=== PATIENT | male | born 1990 | race Caucasian/White ===

== ENCOUNTER 2024-07-09 16:38 | Emergency (ER) | payer OTHER, SELFPAY ==
[2024-07-09 16:49] VITALS: BP 127/93; PULSE 79; RESP 16; TEMP 36.6; O2SAT 97; BMI 29.0
--- NOTE | 2024-07-09 17:00 | DI.CT.S_ITS ---
PROCEDURE: CT HEAD/BRAIN WO CON INDICATIONS: trauma fall 8-10ft off docked boat TECHNIQUE: Noncontrast 4.5 mm thick angled axial sections acquired from the foramen magnum to the vertex, with coronal and sagittal reformats. For radiation dose reduction, the following was used: automated exposure control, adjustment of mA and/or kV according to patient size. COMPARISON: [facility], CT, CT CERVICAL SPINE WO CON, 07/09/2024, 17:04. FINDINGS: Image quality: Diagnostic. CSF spaces: Basal cisterns are patent. No extra-axial fluid collections. Ventricles are normal in size and shape. Brain: No midline shift. No intracranial masses or hemorrhage. Hughes-white matter interface is normal. Skull and face: Right temporal /periorbital scalp hematoma can be seen, without an associated fracture seen. Calvarium and visualized facial bones are intact, without suspicious lesions. Sinuses: Visualized sinuses and mastoids are clear. IMPRESSION: Soft tissue scalp hematoma can be seen involving the right temporal/right peripheral region, without an associated fracture identified. No acute intracranial hemorrhage is seen. No acute intracranial process is seen. Dictated by: Gucci Guadarrama M.D. on 07/09/2024 at 16:26 Approved by: Gucci Guadarrama M.D. on 07/09/2024 at 16:28
--- NOTE | 2024-07-09 17:01 | DI.CT.S_ITS ---
PROCEDURE: CT CERVICAL SPINE WO CON INDICATIONS: trauma fall 8-10ft off docked boat TECHNIQUE: Noncontrast 3 mm thick sections acquired from the skull base to the T4 level. Sagittal and coronal reformats were then constructed. For radiation dose reduction, the following was used: automated exposure control, adjustment of mA and/or kV according to patient size. COMPARISON: [facility], CT, CT HEAD/BRAIN WO CON, 07/09/2024, 17:04. FINDINGS: Image quality: This examination is somewhat limited by quantum mottle artifact. Bones: No fractures or dislocations. Visualized superior ribs are intact. A few scattered foci of bone islands can be seen. Soft tissues: Prevertebral soft tissues are normal in thickness. No paravertebral hematomas. No apical pneumothoraces. IMPRESSION: No displaced fracture or traumatic subluxation. Dictated by: Gucci Guadarrama M.D. on 07/09/2024 at 16:28 Approved by: Gucci Guadarrama M.D. on 07/09/2024 at 16:29
--- NOTE | 2024-07-09 19:34 | ED.HEATRA ---
HPI - Head Injury General Chief complaint: Trauma Stated complaint: head injury, patient doesn't know what happened Time Seen by Provider: 07/09/24 19:33 Source: patient, RN notes reviewed and old records reviewed Mode of arrival: Ambulatory Limitations: no limitations History of Present Illness HPI Narrative: 34-year-old male who had a fall proximally 8 ft on his right side unwitnessed but by patient's close examination appears to be so.? Patient was at work other intervals are present but did not see him fall.? Patient has a large scalp hematoma and has been confused and was quite repetitive.? He does not recall about an hour or 2 before the injury.? Twin brother at bedside who works with him states his mentation has been improving in his memory has been improving over time.? Injury occurred about 1500 today.??Patient denies any neck pain, denies any chest pain or shortness of breath, no back pain, no nausea or vomiting. No numbness tingling or weakness. No difficulty with movement. He does have some pain in his right wrist but denies any other pain or injuries. Patient has a abrasion over the forehead but no other cuts or lacerations. He denies any other injuries. He denies any headache currently. Does not take any medications no anticoagulants, denies any drug allergies. Denies alcohol or recreational drugs. Patient was at work when this occurred. Related Data Allergies Allergy/AdvReac Type Severity Reaction Status Date / Time No Known Drug Allergies Allergy Verified 07/09/24 16:58 Review of Systems Review of Systems ROS Unobtainable: All systems reviewed & are unremarkable except as noted in HPI and below Exam Narrative Exam Narrative: GEN: Patient was C-collar Patient appears in mild distress. HEAD: Patient has a large right forehead/parietal scalp hematoma with a small abrasion, no raccoon/Piña sign. NECK: Nontender, painless range of motion, trachea midline Positive Nexus criteria, no midline line tenderness, distracting injury, positive for altered mental status, no neuro deficit, recent EtOH. EYES: PERRLA, EOMI ENT: External inspection normal, trachea is midline, TM's are normal no hemotypanum, Nares are clear, no septal hematoma, no dental or oral injury, airway is normal and with normal occlusion, No bony tenderness RESP: Chest is nontender and has symmetric movement, no ecchymosis, breath sounds are normal no crackles, wheezes or rales CVS: Heart sounds are normal, no murmur noted, No JVD. ABG/GI: Nontender, soft, normal bowel sounds, no distention, no organomegaly, pelvic rock is negative NEURO: Oriented AOx3, neuro is grossly intact, sensation and motor is normal all 4 extremities moving, cranial nerves II through XII are intact, GCS is 15 PSYCH: Normal mood and affect SKIN: Intact, warm and dry, no crepitus and without decubitus BACK: No CVA tenderness, no vertebral tenderness, no step-off's, no crepitus EXT: Patient has some mild tenderness over the right radius his right hand, has good range of motion no ecchymosis or bruising, no other bony tenderness of his hand or arm. Hips are nontender, no pedal edema, normal color and temperature, normal range of motion of extremities with normal tendon exam, 2+ pulses in all four extremities Initial Vital Signs Initial Vital Signs: Vital Signs Temperature 97.8 F 07/09/24 16:49 Pulse Rate 79 07/09/24 16:49 Respiratory Rate 16 07/09/24 16:49 Blood Pressure 127/93 H 07/09/24 16:49 Pulse Oximetry 97 07/09/24 16:49 Oxygen Delivery Method Room Air 07/09/24 16:49 Course Orders Ordered: Discontinued Medications Diphtheria/Tetanus/Acell Pertussis (Tet,Diph,Pertuss(Acell),Vac/Pf 0.5 Ml Syringe) 0.5 ml IM .ONCE ONE Stop: 07/09/24 19:44 Last Admin: 07/09/24 19:53 Dose: 0.5 ml Documented By: LOIS Vital Signs Vital signs: Vital Signs - 8 hr 07/09/24 16:49 07/09/24 19:57 Temperature 97.8 F Pulse Rate 79 88 Respiratory Rate 16 16 Blood Pressure 127/93 H 138/86 Pulse Oximetry 97 98 Oxygen Delivery Method Room Air Room Air MDM - Head Injury Lab Data Labs: Point of Care Testing Glucose POC 88 MDM Narrative Medical decision making narrative: 34-year-old male unsure if there was any loss of consciousness but did have loss of time has been persistently repetitive although improving according to his brother who has been with him since the incident that happened about 3:00 p.m. today. Patient's imaging head CT and CT cervical spine are overall reassuring. Patient has been improving and felt appropriate for discharge home. Tetanus was updated. Head CT soft tissue scalp hematoma right temporal/right peripheral region without associated fracture no acute intracranial hemorrhage no acute intracranial process or fracture noted. CT cervical spine shows no displaced fracture or traumatic subluxation. Wrist x-ray shows no acute change. Patient has continued to have improvement he was not totally back to baseline but his brother who he lives with states he was significantly improved from before he was felt appropriate for discharge. Reviewed all findings with the patient and his brother who stays with him he was off work for at least a week and paperwork was filled out for L and I discussed return precautions all questions answered. We will place a Velcro splint has a little bit of pain still. Discharge Plan Departure Patient Disposition: Home Clinical Impression: Concussion Instructions: DI for Concussion Activity Restrictions/Additional Instructions: Please follow up for recheck if your symptoms are not continuing to improve. No activity or contact sports until you are completely asymptomatic. If you have any recurrence of symptoms return your activity level back to where it was. Please return for severe headaches, vomiting, lightheadedness or passing out, new numbness, tingling or difficulty with movement of your extremities, new chest pain or shortness of breath, new back or neck pain, any changes to mentation or other new or concerning changes. Referrals: Miscellaneous,Doctor, MD [Primary Care Provider] - Stand Alone Forms: Patient Portal/API/Survey, Work Release Note
--- NOTE | 2024-07-09 19:43 | DI.RAD.S_ITS ---
PROCEDURE: XR WRIST RT MIN 3V INDICATIONS: wrist pain, fall TECHNIQUE: 4 views of the wrist were acquired. COMPARISON: None. FINDINGS AND IMPRESSION: No acute displaced fracture or dislocation. No suspicious calcifications. If there is high concern for occult injury, consider repeat radiography or cross-sectional imaging. Dictated by: Jake Weathers M.D. on 07/09/2024 at 20:38 Approved by: Jake Weathers M.D. on 07/09/2024 at 20:40
[2024-07-09] MEDS: TET,DIPH,PERTUSS(ACELL),VAC/PF 0.5 ML SYRINGE IM (19:53)
[2024-07-09 19:57] VITALS: BP 138/86; PULSE 88; RESP 16; O2SAT 98
[2024-07-09 21:10] VITALS: BP 127/84; PULSE 65; RESP 18; O2SAT 98
== END 2024-07-09 21:18 | disposition home or self-care (01) ==
PROVIDERS: Emergency Provider Emergency Medicine
DX: S06.0X0A Concussion without loss of consciousness, initial encounter (principal); M25.531 Pain in right wrist; S00.81XA Abrasion of other part of head, initial encounter; R41.82 Altered mental status, unspecified; W17.89XA Other fall from one level to another, initial encounter; Z23 Encounter for immunization
CPT/HCPCS: 70450; 72125; 73110; 90471; 99284; 90715

== ENCOUNTER 2024-11-13 22:33 | Emergency (ER) | payer BC, SELFPAY ==
[2024-11-13 22:36] VITALS: BP 139/87; PULSE 78; RESP 18; TEMP 37; O2SAT 96; BMI 34.7
--- NOTE | 2024-11-14 00:17 | ED.WOUNDLAC ---
HPI - Wound/Laceration General Chief Complaint: Wound/Laceration Stated Complaint: Lt leg skin tag bleeding x few hours Time Seen by Provider: 11/14/24 00:15 Source: patient Mode of arrival: Ambulatory History of Present Illness HPI narrative: 34-year-old male with a past medical history of no significance presents to the emergency department from home for evaluation of cut to the buttock region, he states that earlier today he was taking off his pants when a skin tag got caught, he states that it was starting to bleed a little bit and hang so he took nail clippers and cut the rest of it off, he states that it has been bleeding since, he states he is up-to-date on his tetanus. Denies any other injuries not on any blood thinners Related Data Allergies Allergy/AdvReac Type Severity Reaction Status Date / Time No Known Drug Allergies Allergy Verified 11/13/24 22:36 Review of Systems Review of Systems Narrative: General: Denies fever, chills, weight loss HEENT: Denies headache, eye drainage, eye irritation, head trauma, sore throat, voice change Cardiovascular: Denies any chest pain, palpitations, tachycardia Respiratory: Denies any shortness of breath, cough, wheeze, stridor GI/: Denies any abdominal pain, nausea, vomiting, diarrhea, bright red blood per rectum, melanotic stools, urinary frequency, urinary retention, dysuria, hematuria MSK: Denies any joint pain, muscle pains, swelling Skin: Bleeding/cut to left posterior thigh Neuro: Denies any headache, lightheadedness, dizziness, fainting, weakness Psych: Denies SI/HI Patient History Smoking Status: Never smoker Exam Narrative Exam Narrative: General: Cooperative, well-developed, not in acute distress HEENT: Normocephalic, atraumatic, PERRLA, normal sclera, eyelids normal Neck: Active full range of motion, atraumatic Chest: Normal to inspection, negative crepitus, no overlying erythema ecchymosis Respiratory: Normal respiratory effort, not in acute respiratory distress, clear to auscultation bilaterally negative cough, wheeze, tachypnea, rhonchi, rales Cardiology: Regular rate rhythm negative gallop, murmur, rubs GI/: No tenderness to palpation, soft, non rigid, normal to inspection, exam deferred MSK: Full active range of motion in all 4 extremities, atraumatic, no tenderness to palpation of any bony prominences Skin: There is a 0.25 cm superficial laceration noted to the posterior aspect of the superior thigh, no foreign body, oozing on exam but otherwise no other gross deformities noted, lower extremities neurovascularly intact Neuro: Alert awake oriented x3, moves all 4 extremities spontaneously, cranial nerves intact, able to answer all questions appropriately follows commands appropriately Psych: Cooperative, negative suicidal or homicidal ideations Initial Vital Signs Initial Vital Signs: Vital Signs Temperature 98.6 F 11/13/24 22:36 Pulse Rate 78 11/13/24 22:36 Respiratory Rate 18 11/13/24 22:36 Blood Pressure 139/87 11/13/24 22:36 Pulse Oximetry 96 11/13/24 22:36 Oxygen Delivery Method Room Air 11/13/24 22:36 Procedures Laceration Repair Laceration 1: Time of procedure: 00:56 Site: lower extremity Side (If applicable): left Size (cm): 0.25 Description: linear Depth: simple, single layer Local Anesthetic: lidocaine 1% and with epi Amount of anesthesia used (mL): 2 Pre-repair: wound explored, irrigated extensively and deep structures intact Skin layer closed with: other (Ethilon) Skin layer suture size: 4-0 Number of sutures: 1 Technique: simple, interrupted Course Vital Signs Vital signs: Vital Signs - 8 hr 11/13/24 22:36 Temperature 98.6 F Pulse Rate 78 Respiratory Rate 18 Blood Pressure 139/87 Pulse Oximetry 96 Oxygen Delivery Method Room Air MDM - Wound/Laceration Differential Diagnosis Differential diagnosis: Likely laceration, abrasion and avulsion of skin MDM Narrative Medical decision making narrative: Patient is a 34-year-old male without any significant past medical history presents to the emergency department from home for evaluation of cut/laceration to the back of his left thigh, he states that earlier today he had a skin tag that got caught on his pants, states that it was hanging off and bleeding so he took a pair of nail clippers and cut the remaining off, he states that he had persistent bleeding therefore decided come into the ED for further evaluation treatment. Patient states that he is up-to-date on his tetanus, he states that he is not on any blood thinners. On exam there is a 0.25 cm superficial laceration to the posterior aspect of the upper left thigh, did use lidocaine with epi and placed 1 4-0 Ethilon suture, bleeding was controlled, patient not complaining of any other symptoms he was instructed to follow up with the primary care for suture removal, he verbalized understanding of this was given strict return precautions agrees to being discharged home with outpatient follow up Discharge Plan Departure Patient Disposition: Home Clinical Impression: Laceration Instructions: DI for Laceration Repair Activity Restrictions/Additional Instructions: You have 1 suture that needs to be removed in approximately 1 week Please read the discharge instructions sheet carefully and bring all papers to all doctor follow-up visits, as it may contain information that your doctor may want to see. Disease processes change and evolve, if your symptoms worsen or if you develop any new symptoms that are concerning to you please return for evaluation. Your evaluation today does not show any evidence of any life-threatening/serious illnesses requiring admission to the hospital or surgery. Please follow-up with your doctor for re-evaluation in approximately 1 day. Seek immediate medical attention for any worrisome symptoms. *If you do not have a primary care provider please contact the [facility] Resource line at [phone]. They will ask some questions about your medical history and help get you set up with a doctor in the community. Referrals: Miscellaneous,Doctor, MD [Primary Care Provider, Medical] Stand Alone Forms: Patient Portal/API
== END 2024-11-14 01:04 | disposition home or self-care (01) ==
PROVIDERS: Emergency Provider Student in an Organized Health Care Education/Training Program
DX: S71.112A Laceration without foreign body, left thigh, initial encounter (principal); W26.9XXA Contact with unspecified sharp object(s), initial encounter
CPT/HCPCS: 12001; 99282; 99283